=== PATIENT | male | born 1965 | race Caucasian/White ===

== ENCOUNTER 2020-08-13 14:23 | Observation (INO) | payer MEDICARE, MEDICAID ==
[2020-08-06 15:13] LABS: BASOPHILS # (AUTO) 0.1 X10'3 (0-0.2); BASOPHILS % (AUTO) 0.9 % (0-1); EOSINOPHILS # (AUTO) 0.1 X10'3 (0-0.9); EOSINOPHILS % (AUTO) 2.3 % (0-6); LYMPHOCYTES # (AUTO) 1.3 X10'3 (1.1-4.8); LYMPHOCYTES % (AUTO) 20.8 % (21-51); MEAN CORPUSCULAR HGB CONC 34.4 g/dL (33.0-36.5); MEAN PLATELET VOLUME 7.7 FL (7.4-10.4); MONOCYTES # (AUTO) 0.6 X10'3 (0-0.9); MONOCYTES % (AUTO) 9.1 % (2-12); NEUTROPHILS # (AUTO) 4.2 X10'3 (1.8-7.7); NEUTROPHILS % (AUTO) 66.9 % (42-75); PRE OP HEMATOCRIT 45.2 % (42.0-52.0); PRE OP HEMOGLOBIN 15.6 g/dL (14.0-17.9); PRE OP PLATELET COUNT 238 X10'3 (140-440); RED BLOOD COUNT 5.02 X10'6 (4.70-6.10); RED CELL DISTRIBUTION WIDTH 13.8 % (11.5-14.5)
[2020-08-06 15:25] LABS: PRE OP PROTIME 10.3 SECONDS (9.0-12.0)
[2020-08-06 15:28] LABS: ALBUMIN 3.7 G/DL (3.4-5.0); ALBUMIN/GLOBULIN RATIO 1.2 (1.1-1.5); ALKALINE PHOSPHATASE 75 IU/L (46-116); BLOOD UREA NITROGEN 15 MG/DL (7-18); CALCIUM 8.6 MG/DL (8.5-10.1); CHLORIDE 107 MMOL/L (99-107); CREATININE 0.94 MG/DL (0.60-1.10); PRE OP ALT 34 U/L (30-65); PRE OP ANION GAP 7 (8-16); PRE OP AST 17 U/L (10-37); PRE OP BILIRUB, TOTAL 0.4 MG/DL (0.0-1.0); PRE OP GLUCOSE 132 MG/DL (70-104); PRE OP POTASSIUM 3.9 MMOL/L (3.4-5.1); PRE OP SODIUM 144 MMOL/L (135-145); TOTAL CARBON DIOXIDE 29.9 MMOL/L (24-32); TOTAL PROTEIN 6.9 G/DL (6.4-8.2); eGFR 83 ML/MIN
[2020-08-13] VITALS (13 sets, daily range): BP systolic 99–117; BP diastolic 59–75
[~2020-08-13] VITALS: Ht 170.2 cm; Wt 98.6 kg
[~2020-08-13 14:23] MED LIST: ACET-75 PO; DIPH25TA2 PO; FLO0.4C PO; IBUP-1985 PO; ceFAZolin 2gm in dextrose, iso 50 ML IV ONE; famotidine 20mg tablet PO ONE; ringers solution, lacted 1,000 ML IV SCH; vancomycin 1,500 MG in NS 300ml IV soln IV ONE
[2020-08-13] MEDS ORDERED: BUPIVAcaine/PF 2.5 mg/ml (0.25%) 30ml vial ONE (16:14)
[2020-08-13] MEDS ORDERED: sevoflurane 250ml liquid IH ONE (16:22)
[2020-08-13] MEDS ORDERED: fentaNYL/PF 50MCG/1 ML 2ML syringe ONE (16:24)
[2020-08-13] MEDS ORDERED: MIDAZolam 5mg/5ml vial ONE (16:25)
[2020-08-13] MEDS ORDERED: ROPIVAcaine 0.5% (5mg/ml) 30ml vial ONE (16:33)
[2020-08-13] MEDS ORDERED: LIDOcaine 2% (20mg/ml) 5ml vial ONE (16:58)
[2020-08-13] MEDS ORDERED: propofol inj 20 ML IV ONE (16:58)
[2020-08-13] MEDS ORDERED: dexamethasone sod phosphate 4mg/ml inj. ONE (16:59)
[2020-08-13] MEDS ORDERED: diphenhydrAMINE 50 mg/ml inj ONE (16:59)
[2020-08-13] MEDS ORDERED: meperidine/PF 25mg/ml syringe IV PRN ×3 (17:25)
[2020-08-13] MEDS ORDERED: morphine 2 MG/ML inj. syringe IV PRN (17:25)
[2020-08-13] MEDS ORDERED: ringers solution, lacted 1,000 ML IV SCH (17:25)
[2020-08-13] MEDS ORDERED: ondansetron/PF 4mg/2ml inj IV PRN ×2 (17:25→20:15)
[2020-08-13] MEDS ORDERED: morphine 4 MG/ML inj SYRINge IV PRN (17:25)
[2020-08-13] MEDS ORDERED: proCHLORperazine 10 MG/2 ml inj IV PRN (17:25)
[2020-08-13] MEDS ORDERED: ondansetron/PF 4mg/2ml inj ONE (19:09)
--- NOTE | 2020-08-13 20:00 | NUR ---
Received from OR via BED, accompanied by Anesthesiologist DR MORRISON and report given by Anesthesiolgist. PATIENT A&OX4, DENIES PAIN, V/S WNL, NEUROVASCULAR CHECKS INTACT, 20G PIV LUE, SCD ON, SPLINT/DRESSING TO RIGHT ARM CDI ELEVATED WITH ICEBAG APPLIED AND SLING.
--- NOTE | 2020-08-13 20:12 | NUR ---
INTERPRITER WITH PATIENT NOW.
[2020-08-13] MEDS ORDERED: acetaminophen 325mg tablet PO PRN (20:15)
[2020-08-13] MEDS ORDERED: magnesium hydroxide 30ml (MOM) UD suspension PO PRN (20:15)
[2020-08-13] MEDS ORDERED: potassium Cl 20mEq in NS 1,000 ML IV SCH (20:15)
[2020-08-13] MEDS ORDERED: HYDROcodone/acetaminophen 10/325mg tab PO PRN ×2 (20:15)
[2020-08-13] MEDS ORDERED: HYDROmorphone 1 mg/ml syringe IV PRN (20:15)
[2020-08-13] MEDS ORDERED: diphenhydrAMINE 25mg capsule PO PRN ×2 (20:15)
[2020-08-13] MEDS ORDERED: bisacodyl 10mg suppository rectal RC PRN (20:15)
--- NOTE | 2020-08-13 20:40 | NUR ---
PATIENT A&OX4, DENIES PAIN, V/S WNL, NEUROVASCULAR CHECKS INTACT, 20G PIV LUE, SCD ON, SPLINT/DRESSING TO RIGHT ARM CDI ELEVATED WITH ICEBAG APPLIED AND SLING D/C PER DR BRICE . 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 PATIENT TAKEN TO 4007 WITH ALL BELONGINGS AND HOOKED UP TO MONITORS IN ROOM AND REPORT GIVEN TO RN WHO HAS TAKEN OVER PATIENT CARE.
[2020-08-13] MEDS ORDERED: sennosides 8.6mg tablet PO SCH (21:00)
[2020-08-14 00:15] VITALS: BP 122/71
[2020-08-14] MEDS: ceFAZolin/D5W- 1GM premix 50 ML IV SCH ×2 (00:37→08:11)
[2020-08-14 02:00] VITALS: BP 107/64
--- NOTE | 2020-08-14 06:37 | NUR ---
Problems reprioritized. Patient report given, questions answered & plan of care reviewed with SORAYA Timmons.
--- NOTE | 2020-08-14 06:37 | NUR ---
Patient in room ORTH[facility] 4007. I have received report from Patricia LIRA and had the opportunity to ask questions and assume patient care.
[2020-08-14] MEDS ORDERED: aspirin 81mg tablet.DR PO SCH (07:30)
[2020-08-14 07:37] VITALS: BP 107/57
[2020-08-14] MEDS ORDERED: vancomycin/NS 1 GM ADD-VANTAGE 250 ML IV SCH (08:00)
[2020-08-14] MEDS ORDERED: tamsulosin 0.4mg capsule PO SCH (08:00)
[2020-08-14] MEDS ORDERED: ASPI-1071 PO (08:45)
[2020-08-14 10:00] VITALS: BP 107/60
[2020-08-14] MEDS ORDERED: HYDR-3965 PO (12:04)
--- NOTE | 2020-08-14 14:35 | NUR ---
Pt DC to home with family. Pt is A & O x4 and in no apparent distress. Pt able to relay understanding through the systems designer. Pt able to teach back exercises and verbalizes the importance of following up with Dr Diallo. 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 Pt given print outs and specific instructions. Pt got dressed and walk to the front where a family member pick him up.
--- NOTE | 2020-08-17 11:15 | NUR ---
CASE MANAGEMENT DISCHARGE FOLLOW UP: T/c to pt, no answer, left message requesting callback. Addendum: 08/17/20 at 1158 by Aria Ron RN [id number] Received return call, spoke with pt via gasoline engine inspector via telephone. Reports that he is fine, doing okay; denies bleeding, fever, s/sx of infection. States that dressing is CDI. Verbalizes understanding of s/sx requiring further evaluation/emergent assistance. Verbalizes understanding of new and current medications. Pt wants to know if there is anything stronger that he can take for pain, advised to contact surgeon. Verbalizes compliance with MD discharge instructions. Verbalizes understanding of the importance in making/keeping follow-up appointments, sees Dr Avery on Monday. States no further questions/concerns at this time.
== END 2020-08-14 14:35 | disposition home or self-care (01) ==
LOC: PAS 14:23 → ORTHO 4S 20:12 → UNDOADMOB 20:12 → ORTHO 4S 20:44
PROVIDERS: ADMIT Orthopaedic Surgery; ATTEND Orthopaedic Surgery
DX: S46.211A Strain of muscle, fascia and tendon of other parts of biceps, right arm, initial encounter (principal); Z20.822 Contact with and (suspected) exposure to COVID-19; N40.0 Benign prostatic hyperplasia without lower urinary tract symptoms; F80.9 Developmental disorder of speech and language, unspecified; Z79.899 Other long term (current) drug therapy; X58.XXXA Exposure to other specified factors, initial encounter; Y93.89 Activity, other specified; Y92.89 Other specified places as the place of occurrence of the external cause
CPT/HCPCS: 24340; 36415; 80053; 82948; 85025; 85610; 85730; 87081; 87426; 87635; 93005; 96361; 96365; 96366; 96367; A6223; G0378; J0690; J1100; J1200; J2001; J2250; J2405; J2704; J3010; J3370; J3480; J3490; J7040; J7120; A4215; A4618; A6449; J2795